=== PATIENT | female | born 1995 | race Caucasian/White ===

== ENCOUNTER 2019-07-22 21:31 | Emergency (ER) | payer OTHER ==
[~2019-07-22] VITALS: Ht 147.3 cm; Wt 62.6 kg
[2019-07-22 21:38] VITALS: Ht 147.3 cm; Wt 62.6 kg
[2019-07-22 22:34] LABS: BASOPHIL % 0.4 % (0-2); PLATELET COUNT 272 x10^3mcL (130-400); RED CELL DISTRIBUTION WIDTH 12.8 % (11.5-14.5)
[2019-07-22 22:44] LABS: CALCIUM 8.9 mg/dL (8.5-10.1); CHLORIDE SERUM 102 mmol/L (98-107); CREATININE SERUM 0.8 mg/dL (0.6-1.0); GFR1 > 60 mL/min; GLUCOSE SERUM 96 mg/dL (74-106); POTASSIUM SERUM 3.9 mmol/L (3.5-5.1); SODIUM SERUM 140 mmol/L (136-145)
[2019-07-22 22:48] LABS: ALBUMIN 4.3 g/dL (3.4-5.0); ALKALINE PHOSPHATASE 52 U/L (46-116); ALT/SGPT 24 U/L (14-59); AST/SGOT 19 U/L (15-37); BILIRUBIN TOTAL 0.5 mg/dL (0.20-1.00); MAGNESIUM 1.9 mg/dL (1.8-2.4); TOTAL PROTEIN, SERUM 7.9 g/dL (6.4-8.2)
[2019-07-22 22:53] LABS: AMPHETAMINE QUAL UR NONE DETECTED (See below)
[2019-07-22 22:56] LABS: T3 TOTAL 1.43 ng/mL
[2019-07-22 23:01] LABS: FREE T4 1.11 ng/dL (0.76-1.46); FREE THYROXINE INDEX 3.5 ug/dL (1.4-4.5); T4(THYROXINE) 10.3 ug/dL (4.7-13.3)
[2019-07-22 23:37] VITALS: BP 116/71
== END 2019-07-22 23:37 | disposition home or self-care (01) ==
LOC: ED 21:31
PROVIDERS: Emergency Medicine
DX: R07.89 Other chest pain (principal); R00.2 Palpitations
CPT/HCPCS: 36415; 84439; 85378; Q0092